=== PATIENT | male | born 1975 | race Caucasian/White ===

== ENCOUNTER 2018-09-21 17:48 | Observation (INO) | payer OTHER, SELFPAY ==
[2018-09-21 18:15] VITALS: BP 138/73; PULSE 86; RESP 11; O2SAT 100
--- NOTE | 2018-09-21 18:20 | DI.RAD.S_ITS ---
PROCEDURE: XR CHEST 1V INDICATIONS: chest pain TECHNIQUE: One view of the chest was acquired. COMPARISON: None. FINDINGS: Surgical changes and devices: None. Lungs and pleura: Lungs are clear. No pleural effusions or pneumothorax. There is prominence of the pulmonary vasculature bilaterally. Mediastinum: Mediastinal contours appear normal. Heart size is normal. Bones and chest wall: No suspicious bony lesions. Overlying soft tissues appear unremarkable. IMPRESSION: No acute cardiopulmonary disease. Dictated by: Mahin Trevino M.D. on 09/21/2018 at 19:15 Approved by: Mahin Trevino M.D. on 09/21/2018 at 19:16
[2018-09-21 18:30] VITALS: PULSE 86; RESP 11; TEMP 37.2; O2SAT 100; BMI 23.0
--- NOTE | 2018-09-21 18:31 | ED.CHESTPAIN ---
HPI - Chest Pain General Chief Complaint: Chest Pain Stated Complaint: CHEST PAIN Time Seen by Provider: 09/21/18 18:16 Source: patient Mode of arrival: ambulatory Limitations: no limitations History of Present Illness HPI narrative: Patient is a 43-year-old male who presents with chest pain. He said he had an episode 5 days ago during a very high stress event. He thought nothing of it. Today however at 8:30 a.m. this morning he started having chest discomfort lasting for about 10 min at a time. Not exacerbated with exertion or position. During these episodes he got extremely diaphoretic. He denies any shortness of breath or nausea. He also had some burning sensation in he cup that lasted 7 hr. He does have some mild discomfort now. He has no known coronary artery disease. MD complaint: chest pain Duration: intermittent Pain location: substernal Severity: moderate Pain radiation: none Relieving factors: nothing Exacerbating factors: nothing Related Data Allergies Allergy/AdvReac Type Severity Reaction Status Date / Time No Known Drug Allergies Allergy Verified 09/21/18 18:30 Review of Systems Review of Systems GENERAL: Denies chills, fatigue, malaise, fever, sweats, travel HEENT: Denies sinus pain, ear pain, sore throat, difficulty swallowing, neck pain RESPIRATORY: Denies dyspnea, cough, wheezing, hemoptysis, sputum. CARDIOVASCULAR: See HPI GASTROINTESTINAL: Denies nausea, vomiting, abdominal pain, diarrhea, constipation, melena. : Denies dysuria, frequency, incontinence, hematuria, urinary retention, flank pain. MUSCULOSKELETAL: Denies weakness, joint pain, or bony pain SKIN: No rash, no erythema, no pruritus NEUROLOGIC: Denies weakness, dizziness, headache, numbness, change in speech, confusion PSYCHIATRIC: No concerning psychosocial issues. 12 point review of systems is negative except for those stated above and HPI PFSH Medical History Hypertension (Acute) Migraine headache (Acute) Social History household members: spouse Smoking Status: Never smoker alcohol intake: never Social History household members: spouse Smoking Status: Never smoker alcohol intake: never Exam Initial Vital Signs Initial Vital Signs: Vital Signs Pulse Rate 86 09/21/18 18:15 Respiratory Rate 11 L 09/21/18 18:15 Blood Pressure 138/73 09/21/18 18:15 Pulse Oximetry 100 09/21/18 18:15 GENERAL: Well-appearing, well-nourished and in no acute distress. HEENT: Head atraumatic,EOMI, pupils reactive, CARDIOVASCULAR: Regular rate and rhythm without murmurs, rubs or gallops. RESPIRATORY: Breath sounds equal bilaterally, no wheezes rales or rhonchi. ABDOMEN: Soft, nontender. Normoactive bowel sounds all 4 quadrants. No guarding or rebound. EXTREMITIES: Normal range of motion, no clubbing or edema. Neurovascularly intact NEUROLOGICAL: Alert and oriented x4.Normal gait and speech. SKIN: Warm, dry, no laceration, no petechiae, no rashes or lesions. Scores HEART Score Heart Score history: Moderately Suspicious Heart Score EKG: Normal Heart Score Age: 45-64 years old Heart Score risk factors: No known risk factors Heart Score troponin: < or = to normal limit Heart Score Total: 2 Course Orders Ordered: ED Orders 09/21/18 21:48 Consult to Discharge Planning Routine 09/21/18 23:58 Respiratory Panel (Film Array) Routine 09/22/18 Basic Metabolic Panel Routine Complete Blood Count AUTO DIFF Routine 09/22/18 05:00 Troponin & CK Cardiac Panel Urgent Acetaminophen (Tylenol) 650 mg PO Q6HR PRN PRN Reason: As Needed for Fever/Mild Pain Ibuprofen (Advil) 600 mg PO Q6HR PRN PRN Reason: As Needed for Fever/Mild Pain Last Admin: 09/22/18 00:11 Dose: 600 mg Magnesium Hydroxide (Milk Of Magnesia) 30 ml PO DAILY PRN PRN Reason: Constipation Morphine Sulfate (Morphine) 2 mg IV Q4HR PRN PRN Reason: Pain, Moderate (4-6) Naloxone HCl (Narcan) 0.2 mg IV Q2MIN PRN PRN Reason: Opiate Reversal Nitroglycerin (Nitrostat) 0.4 mg SL [id number] PRN PRN Reason: Chest Pain Ondansetron HCl (Zofran) 4 mg IV Q8HR PRN PRN Reason: Nausea And Vomiting Oxycodone HCl (Oxycodone) 10 mg PO Q4HR PRN PRN Reason: Pain, Severe (7-10) Oxycodone HCl (Oxycodone) 5 mg PO Q4HR PRN PRN Reason: Pain, Moderate (4-6) Pantoprazole Sodium (Protonix) 20 mg PO 0600 [facility] Discontinued Medications Aspirin (Aspirin Chew) 324 mg PO NOW ONE Stop: 09/21/18 18:21 Last Admin: 09/21/18 18:46 Dose: 324 mg Al Hydrox/Mg Hydrox/Simethicone 20 ml/ Lidocaine HCl 15 ml 0 ml PO NOW ONE Stop: 09/21/18 22:25 Last Admin: 09/21/18 22:57 Dose: 35 ml Ketorolac Tromethamine (Toradol) 30 mg IV NOW ONE Stop: 09/21/18 20:00 Last Admin: 09/21/18 20:13 Dose: 30 mg Pantoprazole Sodium (Protonix) 40 mg IV NOW ONE Stop: 09/21/18 18:40 Last Admin: 09/21/18 18:48 Dose: 40 mg Vital Signs - 8 hr 09/21/18 21:12 09/21/18 22:25 09/22/18 00:17 Temperature 98.9 F 98.8 F Pulse Rate 79 77 74 Respiratory Rate 16 20 16 Blood Pressure 126/76 119/64 Blood Pressure [Left Arm] 128/77 Pulse Oximetry 98 98 98 MDM - Chest Pain Lab Data Attestation: I reviewed the patient's lab results. Result diagrams: 09/21/18 18:20 09/21/18 18:20 Lab Results 09/21/18 09/21/18 09/21/18 Range/Units 18:20 18:20 18:20 WBC 5.4 (4.5-11.0) X10^3/uL RBC 4.58 (4.5-5.9) X10^6/uL Hgb 13.9 (13.5-17.5) g/dL Hct 41.0 (41-53) % MCV 89.6 (80-100) fL MCH 30.2 (26-34) PG MCHC 33.8 (30-36) % RDW 13.2 (11.6-14.8) % Plt Count 194 (150-400) X10^3/uL Neut % (Auto) 72.8 (50-75) % Lymph % (Auto) 16.2 L (25-40) % [place] % (Auto) 8.3 (3-14) % Eos % (Auto) 1.9 L (2-4) % Baso % (Auto) 0.8 (0-2) % Neut # (Auto) 4000 (8178-9358) /uL Lymph # (Auto) 900 L (6904-0773) /uL [place] # (Auto) 500 (0-900) /uL Eos # (Auto) 100 (0-450) /uL Baso # (Auto) 0 (0-100) /uL PT 11.8 (10.1-12.7) SECONDS INR 1.0 (0.9-1.3) APTT 42 H (26.4-36.2) SECONDS Sodium 136 L (137-145) mmol/L Potassium 3.6 (3.4-5.1) mmol/L Chloride 98 (98-107) mmol/L Carbon Dioxide 25 (22-32) mmol/L BUN 11 (9-20) mg/dL Creatinine 0.70 (0.66-1.25) mg/dL Estimated GFR > 60.0 (>60) mL/min BUN/Creatinine Ratio 15.7 (6-22) Glucose 107 H (70-100) mg/dL Calcium 9.4 (8.4-10.2) mg/dL Total Bilirubin 0.6 (0.2-1.3) mg/dL AST 23 (17-59) IU/L ALT 29 (21-72) IU/L Alkaline Phosphatase 47 (38-126) U/L Total Creatine Kinase 73 (55-170) U/L CK-MB (CK-2) TNP CK-MB (CK-2) Rel Index TNP Troponin I < 0.012 (0.01-0.034) ng/mL B-Natriuretic Peptide < 100 (<100) Total Protein 7.9 (6.3-8.2) g/dL Albumin 5.0 (3.5-5.0) g/dL Globulin 2.9 (1.7-4.1) g/dL Albumin/Globulin Ratio 1.7 (1.0-2.8) Lipase 77 (23-300) U/L Chlamy pneumoniae PCR (Not Detect) Adenovirus (PCR) (Not Detect) B.parapertussis DNA PCR (Not Detect) Coronavirus OC43 (PCR) (Not Detect) Coronavirus HKU1 (PCR) (Not Detect) Coronavirus 229E (PCR) (Not Detect) Coronavirus NL63 (PCR) (Not Detect) Human Metapneumovir PCR (Not Detect) Influenza Type A (PCR) (Not Detect) Influenza Type B (PCR) (Not Detect) M. pneumoniae (PCR) (Not Detect) Parainfluenza 1 (PCR) (Not Detect) Parainfluenza 2 (PCR) (Not Detect) Parainfluenza 3 (PCR) (Not Detect) Parainfluenza 4 (PCR) (Not Detect) RSV (PCR) (Not Detect) Entero/Rhino (PCR) (Not Detect) 09/21/18 Range/Units 23:58 WBC (4.5-11.0) X10^3/uL RBC (4.5-5.9) X10^6/uL Hgb (13.5-17.5) g/dL Hct (41-53) % MCV (80-100) fL MCH (26-34) PG MCHC (30-36) % RDW (11.6-14.8) % Plt Count (150-400) X10^3/uL Neut % (Auto) (50-75) % Lymph % (Auto) (25-40) % [place] % (Auto) (3-14) % Eos % (Auto) (2-4) % Baso % (Auto) (0-2) % Neut # (Auto) (2297-9426) /uL Lymph # (Auto) (1792-9763) /uL [place] # (Auto) (0-900) /uL Eos # (Auto) (0-450) /uL Baso # (Auto) (0-100) /uL PT (10.1-12.7) SECONDS INR (0.9-1.3) APTT (26.4-36.2) SECONDS Sodium (137-145) mmol/L Potassium (3.4-5.1) mmol/L Chloride (98-107) mmol/L Carbon Dioxide (22-32) mmol/L BUN (9-20) mg/dL Creatinine (0.66-1.25) mg/dL Estimated GFR (>60) mL/min BUN/Creatinine Ratio (6-22) Glucose (70-100) mg/dL Calcium (8.4-10.2) mg/dL Total Bilirubin (0.2-1.3) mg/dL AST (17-59) IU/L ALT (21-72) IU/L Alkaline Phosphatase (38-126) U/L Total Creatine Kinase (55-170) U/L CK-MB (CK-2) CK-MB (CK-2) Rel Index Troponin I (0.01-0.034) ng/mL B-Natriuretic Peptide (<100) Total Protein (6.3-8.2) g/dL Albumin (3.5-5.0) g/dL Globulin (1.7-4.1) g/dL Albumin/Globulin Ratio (1.0-2.8) Lipase (23-300) U/L Chlamy pneumoniae PCR Not detected (Not Detect) Adenovirus (PCR) Not detected (Not Detect) B.parapertussis DNA PCR Not detected (Not Detect) Coronavirus OC43 (PCR) Not detected (Not Detect) Coronavirus HKU1 (PCR) Not detected (Not Detect) Coronavirus 229E (PCR) Not detected (Not Detect) Coronavirus NL63 (PCR) Not detected (Not Detect) Human Metapneumovir PCR Not detected (Not Detect) Influenza Type A (PCR) Not detected (Not Detect) Influenza Type B (PCR) Not detected (Not Detect) M. pneumoniae (PCR) Not detected (Not Detect) Parainfluenza 1 (PCR) Not detected (Not Detect) Parainfluenza 2 (PCR) Not detected (Not Detect) Parainfluenza 3 (PCR) Not detected (Not Detect) Parainfluenza 4 (PCR) Not detected (Not Detect) RSV (PCR) Not detected (Not Detect) Entero/Rhino (PCR) Not detected (Not Detect) Imaging Data Chest x-ray: Radiologist's impression: PROCEDURE: XR CHEST 1V INDICATIONS: chest pain TECHNIQUE: One view of the chest was acquired. COMPARISON: None. FINDINGS: Surgical changes and devices: None. Lungs and pleura: Lungs are clear. No pleural effusions or pneumothorax. There is prominence of the pulmonary vasculature bilaterally. Mediastinum: Mediastinal contours appear normal. Heart size is normal. Bones and chest wall: No suspicious bony lesions. Overlying soft tissues appear unremarkable. IMPRESSION: No acute cardiopulmonary disease. Dictated by: Mahin Trevino M.D. on 09/21/2018 at 19:15 ECG Data Attestation: I personally reviewed and interpreted this ECG as follows: Prior ECG tracings: not available for review Interpretation: EKG 1. Normal sinus rhythm rate 84 year interval [address] changes no T-wave inversions no priors to compare His EKG 2. Normal sinus rhythm rate 77 unchanged from prior no is ST changes T-wave inversions or signs of ischemia MDM Narrative Medical decision making narrative: Patient is low risk for coronary artery disease however he has had multiple episodes today with chest discomfort and diaphoresis. His lasting for about 10-15 minutes at a time. He says that he has had episodes in the ED however is every time I have evaluated him he is chest pain-free at that time. He has already received aspirin he overall appears slightly pale. Troponin EKGs are negative. [facility] hospitalist accepts patient for chest pain observation. Discharge Plan Departure Patient Disposition: Admitted as Observation Clinical Impression: Chest pain Qualifiers: Chest pain type: unspecified Qualified Code(s): R07.9 - Chest pain, unspecified Discharge Date/Time: 09/21/18 21:30 Interventions: ED Discharge Assessment Last Done: 09/21/18 21:30 Admit Date/Time: 09/21/18 20:37 Admit Provider: Calin Blanco
[2018-09-21 18:32] LABS: Add Manual Diff / Slide Review NO; Basophils Absolute Auto 0 /uL (0-100); Basophils Percent Auto 0.8 % (0-2); Eosinophils Absolute Auto 100 /uL (0-450); Eosinophils Percent Auto 1.9 % (2-4); Hemoglobin 13.9 g/dL (13.5-17.5); Lymphocytes Absolute Auto 900 /uL (1100-4500); Lymphocytes Percent Auto 16.2 % (25-40); Mean Corpuscular HGB Conc 33.8 % (30-36); Mean Corpuscular Hemoglobin 30.2 PG (26-34); Mean Corpuscular Volume 89.6 fL (80-100); Monocytes Absolute Auto 500 /uL (0-900); Monocytes Percent Auto 8.3 % (3-14); Neutrophils Absolute Auto 4000 /uL (1500-7000); Neutrophils Percent Auto 72.8 % (50-75); Platelet Count 194 X10^3/uL (150-400); Red Blood Cell Count 4.58 X10^6/uL (4.5-5.9); Red Cell Distribution Width 13.2 % (11.6-14.8); White Blood Cell Count 5.4 X10^3/uL (4.5-11.0)
[2018-09-21 18:42] LABS: Prothrombin Time 11.8 SECONDS (10.1-12.7)
[2018-09-21 18:44] LABS: Alanine Aminotransferase 29 IU/L (21-72); Albumin Globulin Ratio 1.7 (1.0-2.8); Alkaline Phosphatase 47 U/L (38-126); Aspartate Aminotransferase 23 IU/L (17-59); BUN Creatinine Ratio 15.7 (6-22); Bilirubin Total 0.6 mg/dL (0.2-1.3); Blood Urea Nitrogen 11 mg/dL (9-20); Calcium 9.4 mg/dL (8.4-10.2); Carbon Dioxide 25 mmol/L (22-32); Chloride 98 mmol/L (98-107); Creatine Kinase 73 U/L (55-170); Estimated Glomerular Filt Rate > 60.0 mL/min (>60); Globulin 2.9 g/dL (1.7-4.1); Glucose 107 mg/dL (70-100); HEMOLYSIS < 15 (0-50); Lipase 77 U/L (23-300); Potassium 3.6 mmol/L (3.4-5.1); Sodium 136 mmol/L (137-145); Total Protein 7.9 g/dL (6.3-8.2)
[2018-09-21 18:45] LABS: PTT Partial Thromboplastin Tim 42 SECONDS (26.4-36.2)
[2018-09-21] MEDS: ASPIRIN 81 MG TAB 324 MG PO (18:46)
[2018-09-21] MEDS: PANTOPRAZOLE 40 MG VIAL IV (18:48)
[2018-09-21 18:56] LABS: Troponin I < 0.012 ng/mL (0.01-0.034)
[2018-09-21 19:30] VITALS: BP 132/74; PULSE 12; RESP 12; O2SAT 99
[2018-09-21 19:38] LABS: B Type Natriuretic Peptide < 100 (<100)
[2018-09-21] MEDS: KETOROLAC 60 MG/2 ML VIAL 30 MG IV (20:13)
[2018-09-21 20:30] VITALS: BP 133/73; RESP 18; O2SAT 99
[2018-09-21 21:12] VITALS: BP 128/77; PULSE 79; RESP 16; O2SAT 98
[2018-09-21 22:25] VITALS: BP 126/76; PULSE 77; RESP 20; TEMP 37.2; O2SAT 98
[2018-09-21 22:27] VITALS: BMI 23.8
[2018-09-21] MEDS: MAG HYDROX/ALUMINUM/SIMETH SUS 20 ML, LIDOCAINE VISCOUS 2% 15 ML PO (22:57)
--- NOTE | 2018-09-21 23:02 | PC.NURSE ---
Pt came into ER for checst pain. EKG normal, chest xray neg, enzymes neg. Pt came to the floor at 2200. VSS, patient just says that he has pain in head and neck level 6. Francis DIAZ consulted with patient and feels like it is GI related. Pt is on tele, and GI cocktail. Stool sample ordered to rule out H-pylori.
[2018-09-22] MEDS: IBUPROFEN 600 MG TABLET PO (00:11)
[2018-09-22 00:17] VITALS: BP 119/64; PULSE 74; RESP 16; TEMP 37.1; O2SAT 98
--- NOTE | 2018-09-22 00:32 | PC.NURSE ---
Addendum entered by Tasha Ochoa R.N. 09/22/18 05:40: Patient sleeping soundly most of shift after Ibprofen per eMaR. No voiced complaint, VSS. Patient's spouse at bedside this shift. monitor tech in place. Call light in reach. Original Note: NOC SHIFT/PAIN CONTROL Patient resting comfortably in bed at time of assessment. Patient reports that episgastric pain much better after GI cocktail. Patient's reports that he was able to get comfortable and sleep for a few minutes. Patient reporting headache and medicated per eMar. VSS, no acute distress, will continue to monitor. gambling monitor in place, call light in reach.
[2018-09-22 01:31] LABS: Adenovirus Not Detected (Not Detect); Bordetella pertussis Not Detected (Not Detect); Chlamydophila pneumoniae Not Detected (Not Detect); Coronavirus 229E Not Detected (Not Detect); Coronavirus HKU1 Not Detected (Not Detect); Coronavirus NL 63 Not Detected (Not Detect); Coronavirus OC43 Not Detected (Not Detect); Human Metapneumovirus Not Detected (Not Detect); Human Rhinovirus/Enterovirus Not Detected (Not Detect); Influenza A Not Detected (Not Detect); Influenza B Not Detected (Not Detect); Mycoplasma pneumoniae Not Detected (Not Detect); Parainfluenza Virus 1 Not Detected (Not Detect); Parainfluenza Virus 2 Not Detected (Not Detect); Parainfluenza Virus 3 Not Detected (Not Detect); Parainfluenza Virus 4 Not Detected (Not Detect); Respiratory Syncytial Virus Not Detected (Not Detect)
--- NOTE | 2018-09-22 02:55 | P.HP_ITS ---
History of Present Illness Date Patient Seen: 09/21/18 Time Patient Seen: 23:00 Chief complaint: CHEST PAIN Narrative: Gilles Wallis is a 43-year-old male patient with a history of hypertension who presents to the hospital with complaints of chest pain with associated profuse diaphoresis. The patient states that he had an episode of the same which occurred 5 days ago that was self terminating after brief. and did not recur at that time until today at 8:30 a.m. when the patient experienced chest pain that he describes as up and down the midsternum. He describes the pain as burning in character and lasted approximately 10 min and was associated with a profuse sweat. Difficult comfort dissipated without intervention and is not provoked by any specific activity. The pain would recur off and on during the day. The patient describes being under a great deal stress with a high [employer] project. Patient also complains of hiccups that at times be so frequent that he feels that he would have a difficult time breathing, these have since resolved. The patient reports that during these events there was no radiation of the pain he denies back pain palpitations, shortness of breath and had no nausea or vomiting. He has no family history of cardiac disease. Denies acid taste in the mouth. His chief complaint at present is a left-sided headache that started behind left eye with a previous history of migraines his last headache being 5 years ago. He has associated photophobia and phonophobia. The patient does describe recent feeling of illness with fevers and chills for 2 w eeks. He denies dizziness nasal congestion or sore throat. He has had no shortness of breath or cough and denies nausea vomiting, diarrhea or constipation. He reports no difficulty with urinating and has nocturia once nightly. He has had no muscle or joint pains. Patient arrived in the ER at 6:15 p.m.. At that time he had a temperature of 99.0?, heart rate of 86, blood pressure 138/73, respirations of 11 with 100% oxygen saturation on room air. In the ER an x-ray was taken which showed no acute cardiopulmonary disease. His 12 lead EKG showed revealed a sinus rhythm with a ventricular rate of 84 with sinus arrhythmia without ectopy or block. He had no ST or T-wave changes or indication of prior infarct. His P are interval was 161 milliseconds QRS 106 milliseconds and QTC of 449 milliseconds. He had 1 troponin done in the ER which was negative at less than 0.012. His CBC and CMP are completely normal. In the ER he did receive aspirin, Protonix and Toradol for his headache. The ER physicians requested the patient be admitted for chest pain. Patient History Medical History Hypertension (Acute) Migraine headache (Acute) Social History household members: spouse Smoking Status: Never smoker alcohol intake: never Family & Social History Social History: household members spouse Prior Living Arrangements House Safety & Behavioral: Feels Safe in Current Yes Environment Been Physically Hurt or No Threatened By a Person Suicidal Ideation Description None Suicide Plan Description No Plan Tobacco & Substance use: Smoking Status Never smoker alcohol intake never Substance Use Type does not use Comment: The patient lives in a single family home with his . He he has no children and he is somewhat vague in description of his family medical history either not knowing or describing history in general terms however he does state that he has no knowledge of cardiovascular problems and any direct relatives. He otherwise describes his family medical history as unremarkable. Smoking: Patient states he has never smoked Alcohol: The patient reports not consuming alcohol Substance use: Patient denies recreation pharmaceuticals, herbal products or cannabis use. Advanced directives: The patient is wishes to be a full code and designates his Delmis to be his surrogate decision maker. Meds Allergies Allergy/AdvReac Type Severity Reaction Status Date / Time No Known Drug Allergies Allergy Verified 09/21/18 18:30 Review of Systems Review of Systems All systems reviewed & are unremarkable except as noted in HPI and below Exam Vital Signs (past 8 hours): - 09/21/18 19:30 09/21/18 20:30 09/21/18 21:12 Temperature Pulse Rate 12 L 79 Respiratory Rate 12 18 16 Blood Pressure Blood Pressure [Left Arm] 132/74 133/73 128/77 Pulse Oximetry 99 99 98 09/21/18 22:25 09/22/18 00:17 Temperature 98.9 F 98.8 F Pulse Rate 77 74 Respiratory Rate 20 16 Blood Pressure 126/76 119/64 Blood Pressure [Left Arm] Pulse Oximetry 98 98 Oxygen Delivery Method Room Air Narrative Exam Narrative: GENERAL APPEARANCE: well developed, well nourished, in no acute distress. HEAD: Normocephalic, atraumatic, no scalp lesions. EYES: pupils equal, round, reactive to light and accommodation, sclera non- icteric, extraocular movement intact without nystagmus. EARS: normal external structures, no ear pain NOSE: sinuses non tender to percussion, no rhinorrhea ORAL CAVITY: mucosa moist without lesions or exudate, palate normal, tongue in midline. THROAT: normal, no erythema, tonsils not swollen, no exudate, pharynx normal, uvula midline. NECK/THYROID: neck supple, no jugular venous distention, no carotid bruit, no thyromegaly, trachea midline. LYMPH NODES: no cervical or supraclavicular lymphadenopathy. SKIN: warm and dry, no suspicious lesions, no rashes, good turgor. HEART: regular rate and rhythm, S1-S2 without murmur, rubs, gallops, brisk capillary refill, no edema LUNGS: clear to auscultation bilaterally, no coarseness crackles or wheezing CHEST: Symmetrical movement, no accessory muscle use, no pain to AP and lateral compression. ABDOMEN: Soft, no distention, no epigastric or abdominal tenderness on palpation, no guarding or peritoneal signs, no organomegaly, no flank or suprapubic tenderness BACK: Normal curvature, nontender to palpation, no CVA tenderness on percussion EXTREMITIES: moves all extremities, strength is 5/5 and symmetrical, well perfused. NEUROLOGIC: AAO x4, no focal neurologic deficits, motor strength normal upper and lower extremities, sensory exam intact to light touch, cranial nerves II-XII grossly intact, hearing grossly normal to speech. PSYCH: alert, cognitive function intact, good eye contact, stable mood with congruent affect Objective Labs Result Diagrams: 09/21/18 18:20 09/21/18 18:20 Labs: Laboratory Results - last 24 hr 09/21/18 09/21/18 09/21/18 18:20 18:20 18:20 WBC 5.4 RBC 4.58 Hgb 13.9 Hct 41.0 MCV 89.6 MCH 30.2 MCHC 33.8 RDW 13.2 Plt Count 194 Neut % (Auto) 72.8 Lymph % (Auto) 16.2 L [place] % (Auto) 8.3 Eos % (Auto) 1.9 L Baso % (Auto) 0.8 Neut # (Auto) 4000 Lymph # (Auto) 900 L [place] # (Auto) 500 Eos # (Auto) 100 Baso # (Auto) 0 PT 11.8 INR 1.0 APTT 42 H Sodium 136 L Potassium 3.6 Chloride 98 Carbon Dioxide 25 BUN 11 Creatinine 0.70 Estimated GFR > 60.0 BUN/Creatinine Ratio 15.7 Glucose 107 H Calcium 9.4 Total Bilirubin 0.6 AST 23 ALT 29 Alkaline Phosphatase 47 Total Creatine Kinase 73 CK-MB (CK-2) TNP CK-MB (CK-2) Rel Index TNP Troponin I < 0.012 B-Natriuretic Peptide < 100 Total Protein 7.9 Albumin 5.0 Globulin 2.9 Albumin/Globulin Ratio 1.7 Lipase 77 Chlamy pneumoniae PCR Adenovirus (PCR) B.parapertussis DNA PCR Coronavirus OC43 (PCR) Coronavirus HKU1 (PCR) Coronavirus 229E (PCR) Coronavirus NL63 (PCR) Human Metapneumovir PCR Influenza Type A (PCR) Influenza Type B (PCR) M. pneumoniae (PCR) Parainfluenza 1 (PCR) Parainfluenza 2 (PCR) Parainfluenza 3 (PCR) Parainfluenza 4 (PCR) RSV (PCR) Entero/Rhino (PCR) 09/21/18 23:58 WBC RBC Hgb Hct MCV MCH MCHC RDW Plt Count Neut % (Auto) Lymph % (Auto) [place] % (Auto) Eos % (Auto) Baso % (Auto) Neut # (Auto) Lymph # (Auto) [place] # (Auto) Eos # (Auto) Baso # (Auto) PT INR APTT Sodium Potassium Chloride Carbon Dioxide BUN Creatinine Estimated GFR BUN/Creatinine Ratio Glucose Calcium Total Bilirubin AST ALT Alkaline Phosphatase Total Creatine Kinase CK-MB (CK-2) CK-MB (CK-2) Rel Index Troponin I B-Natriuretic Peptide Total Protein Albumin Globulin Albumin/Globulin Ratio Lipase Chlamy pneumoniae PCR Not detected Adenovirus (PCR) Not detected B.parapertussis DNA PCR Not detected Coronavirus OC43 (PCR) Not detected Coronavirus HKU1 (PCR) Not detected Coronavirus 229E (PCR) Not detected Coronavirus NL63 (PCR) Not detected Human Metapneumovir PCR Not detected Influenza Type A (PCR) Not detected Influenza Type B (PCR) Not detected M. pneumoniae (PCR) Not detected Parainfluenza 1 (PCR) Not detected Parainfluenza 2 (PCR) Not detected Parainfluenza 3 (PCR) Not detected Parainfluenza 4 (PCR) Not detected RSV (PCR) Not detected Entero/Rhino (PCR) Not detected Assessment & Plan Assessment & Plan narrative: 1. Chest pain, substernal nonradiating, acute -patient is evaluated following arrival on the floor and is lying in bed boarding some residual chest discomfort that is burning in character nonradiating -patient has been under great deal stress -the patient is given a GI cocktail with marked improvement symptoms -the patient is on telemetry, will recheck troponin in the morning -chest pain is believed to be gastric mediated reflux symptoms 2. Left migraine headache, acute -patient has had only 2 migraine headaches previously last being 5 years ago also left-sided -patient received Toradol in the emergency department that improved but not resolved his headache pain and is now escalating again -due to presumed gastric etiology of chest pain and reflux will avoid nonsteroidal anti-inflammatories. Oxycodone is ordered 1-2 tablets every 4 hr as needed. -migraine headache also improved following GI cocktail and improvement in pain 3. Hiccups, acute, now resolved -believed to be related to gastric irritation now resolved 4. Essential hypertension, chronic -patient is currently taking atenolol 50 mg daily -hypertensive at 138/73 in the ER down to 128/74 on the floor at the time of exam The patient is admitted to the hospital due to severity symptoms and risk complications. Patient is admitted as an observation with expected length of stay be less than 2 midnights. Time Spent With Patient Time with patient: 25 - 35 minutes Scores GCS [place] coma scale eye opening: Spontaneous Jimmy coma scale verbal response: Orientated Jimmy coma scale motor response: Obey commands [place] coma scale total score: 15 Quality VTE Deep Vein Thrombosis/Pulmonary Embolism Present on Admission: No
[2018-09-22 04:00] VITALS: BP 118/72; PULSE 70; RESP 16; TEMP 36.7; O2SAT 99
[2018-09-22] MEDS: PANTOPRAZOLE 20 MG TABLET PO (05:56)
[2018-09-22] MEDS: ACETAMINOPHEN 325 MG TABLET 650 MG PO (05:57)
[2018-09-22 06:24] LABS: Add Manual Diff / Slide Review NO; Basophils Absolute Auto 0 /uL (0-100); Basophils Percent Auto 0.9 % (0-2); Eosinophils Absolute Auto 200 /uL (0-450); Eosinophils Percent Auto 3.1 % (2-4); Hemoglobin 13.8 g/dL (13.5-17.5); Lymphocytes Absolute Auto 1400 /uL (1100-4500); Lymphocytes Percent Auto 29.5 % (25-40); Mean Corpuscular HGB Conc 34.5 % (30-36); Mean Corpuscular Hemoglobin 30.5 PG (26-34); Mean Corpuscular Volume 88.4 fL (80-100); Monocytes Absolute Auto 600 /uL (0-900); Monocytes Percent Auto 12.5 % (3-14); Neutrophils Absolute Auto 2700 /uL (1500-7000); Platelet Count 189 X10^3/uL (150-400); Red Blood Cell Count 4.52 X10^6/uL (4.5-5.9); Red Cell Distribution Width 13.1 % (11.6-14.8); White Blood Cell Count 4.9 X10^3/uL (4.5-11.0)
--- NOTE | 2018-09-22 06:28 | PM.PN.1 ---
Subjective Date Patient Seen: 09/22/18 Interval history: Gilles Wallis is a 43-year-old male with a past medical history significant for hypertension who presented for abrupt onset burning substernal chest pain with associated profuse diaphoresis. The patient is resting in bed comfortably and in no acute distress. He or she denies headache, ear pain, rhinitis, sore throat, cough, shortness of breath, chest pain, abdominal pain, nausea, vomiting, fever, chills, dysuria, diarrhea or constipation. He or she is voiding and eliminating without difficulty. He or she is up ambulating without or with assistance. Exam Vital Signs (past 8 hours): - 09/22/18 00:17 Temperature 98.8 F Pulse Rate 74 Respiratory Rate 16 Blood Pressure 119/64 Pulse Oximetry 98 Oxygen Delivery Method Room Air Narrative Exam Narrative: General: No acute distress, well-developed, well-nourished, appropriately interactive HEENT: Normocephalic, atraumatic. External ears without defect. Pupils equal, round, and reactive to light and accommodation. Anicteric sclerae, moist conjunctivae, and no lid lag. Oropharynx free of erythema and cobble stoning with moist mucosa. Neck: Supple with full range of motion. No jugular venous distension. No bruits. No lymphadenopathy or thyromegaly. Cardiovascular: Regular rate and rhythm without murmurs, rubs, or gallops appreciated Pulmonary: Clear to auscultation bilaterally without crackles, wheezes, or rhonchi. Normal respiratory effort with no use of accessory muscles. Abdomen: Bowel tones present. Soft, nontender, nondistended. No hepatosplenomegaly or masses appreciated. Extremities: No clubbing, cyanosis, or edema. Skin: Normal temperature, turgor, and texture; no rash, ulcers, or subcutaneous nodules appreciated. Neurological: Cranial nerves grossly intact. Normal muscle strength, tone, and bulk. Reflexes, coordination, and sensory function within normal limits. No known gait impairment. Psychiatric: Normal mood and affect. Alert and oriented to person, place, and time. Objective Labs Result Diagrams: 09/22/18 05:55 09/22/18 05:55 Labs: Laboratory Results - last 24 hr 09/21/18 09/21/18 09/21/18 18:20 18:20 18:20 WBC 5.4 RBC 4.58 Hgb 13.9 Hct 41.0 MCV 89.6 MCH 30.2 MCHC 33.8 RDW 13.2 Plt Count 194 Neut % (Auto) 72.8 Lymph % (Auto) 16.2 L [place] % (Auto) 8.3 Eos % (Auto) 1.9 L Baso % (Auto) 0.8 Neut # (Auto) 4000 Lymph # (Auto) 900 L [place] # (Auto) 500 Eos # (Auto) 100 Baso # (Auto) 0 PT 11.8 INR 1.0 APTT 42 H Sodium 136 L Potassium 3.6 Chloride 98 Carbon Dioxide 25 BUN 11 Creatinine 0.70 Estimated GFR > 60.0 BUN/Creatinine Ratio 15.7 Glucose 107 H Calcium 9.4 Total Bilirubin 0.6 AST 23 ALT 29 Alkaline Phosphatase 47 Total Creatine Kinase 73 CK-MB (CK-2) TNP CK-MB (CK-2) Rel Index TNP Troponin I < 0.012 B-Natriuretic Peptide < 100 Total Protein 7.9 Albumin 5.0 Globulin 2.9 Albumin/Globulin Ratio 1.7 Lipase 77 Chlamy pneumoniae PCR Adenovirus (PCR) B.parapertussis DNA PCR Coronavirus OC43 (PCR) Coronavirus HKU1 (PCR) Coronavirus 229E (PCR) Coronavirus NL63 (PCR) Human Metapneumovir PCR Influenza Type A (PCR) Influenza Type B (PCR) M. pneumoniae (PCR) Parainfluenza 1 (PCR) Parainfluenza 2 (PCR) Parainfluenza 3 (PCR) Parainfluenza 4 (PCR) RSV (PCR) Entero/Rhino (PCR) 09/21/18 23:58 WBC RBC Hgb Hct MCV MCH MCHC RDW Plt Count Neut % (Auto) Lymph % (Auto) [place] % (Auto) Eos % (Auto) Baso % (Auto) Neut # (Auto) Lymph # (Auto) [place] # (Auto) Eos # (Auto) Baso # (Auto) PT INR APTT Sodium Potassium Chloride Carbon Dioxide BUN Creatinine Estimated GFR BUN/Creatinine Ratio Glucose Calcium Total Bilirubin AST ALT Alkaline Phosphatase Total Creatine Kinase CK-MB (CK-2) CK-MB (CK-2) Rel Index Troponin I B-Natriuretic Peptide Total Protein Albumin Globulin Albumin/Globulin Ratio Lipase Chlamy pneumoniae PCR Not detected Adenovirus (PCR) Not detected B.parapertussis DNA PCR Not detected Coronavirus OC43 (PCR) Not detected Coronavirus HKU1 (PCR) Not detected Coronavirus 229E (PCR) Not detected Coronavirus NL63 (PCR) Not detected Human Metapneumovir PCR Not detected Influenza Type A (PCR) Not detected Influenza Type B (PCR) Not detected M. pneumoniae (PCR) Not detected Parainfluenza 1 (PCR) Not detected Parainfluenza 2 (PCR) Not detected Parainfluenza 3 (PCR) Not detected Parainfluenza 4 (PCR) Not detected RSV (PCR) Not detected Entero/Rhino (PCR) Not detected Assessment & Plan Assessment & Plan narrative: Gilles Wallis is a 43-year-old male with a past medical history significant for hypertension who presented for abrupt onset burning substernal chest pain with associated profuse diaphoresis. 1. Acute atypical chest pain, present on admission. Resolved. -Patient presented with substernal burning chest pain, radiating up and down sternum, with associated diaphoresis. Patient reports great deal of stress due to work. -Negligible cardiac risk factors other than hypertension. -Received GI cocktail with marked improvement symptoms. Symptoms likely related to gastric reflux. -EKG did not demonstrate any acute ischemic changes. Initial troponin negative < 0.012. Trend serial troponins x3. -Continue to monitor on telemetry. -Recommend outpatient stress test. 2. Acute left-sided migraine headache, present on admission. Resolved. -History of migraine headaches previously last being 5 years ago also left-sided -Received Toradol in ED and improved. Ordered -Due to presumed gastric etiology of chest pain and reflux will avoid nonsteroidal anti-inflammatories. Oxycodone is ordered 1-2 tablets every 4 hr as needed. -migraine headache also improved following GI cocktail and improvement in pain 3. Acute hiccups, present on admission. Resolved. -Secondary to diaphragmatic spasm from gastric irritation 4. Essential hypertension, chronic, present on admission. Stable. -Continue atenolol 50 mg daily. Well controlled. Quality VTE Deep Vein Thrombosis/Pulmonary Embolism Present on Admission: No
[2018-09-22 06:29] LABS: Creatine Kinase 52 U/L (55-170)
[2018-09-22 06:40] LABS: BUN Creatinine Ratio 12.5 (6-22); Blood Urea Nitrogen 10 mg/dL (9-20); Calcium 9.1 mg/dL (8.4-10.2); Carbon Dioxide 27 mmol/L (22-32); Chloride 101 mmol/L (98-107); Estimated Glomerular Filt Rate > 60.0 mL/min (>60); Glucose 99 mg/dL (70-100); HEMOLYSIS < 15 (0-50); Potassium 3.7 mmol/L (3.4-5.1); Sodium 138 mmol/L (137-145)
[2018-09-22 06:42] LABS: Troponin I < 0.012 ng/mL (0.01-0.034)
[2018-09-22 07:00] VITALS: O2SAT 100
[2018-09-22 08:05] VITALS: BP 129/85; PULSE 70; RESP 16; TEMP 36.7; O2SAT 100
[2018-09-22] MEDS: SUMAtriptan 25 MG TABLET 100 MG PO (08:31)
--- NOTE | 2018-09-22 10:23 | PM.DS.1 ---
History of Present Illness Date Patient Seen: 09/21/18 Chief complaint: CHEST PAIN Narrative: Written by Calin MURGUIA: Gilles Wallis is a 43-year-old male patient with a history of hypertension who presents to the hospital with complaints of chest pain with associated profuse diaphoresis. The patient states that he had an episode of the same which occurred 5 days ago that was self terminating after brief. and did not recur at that time until today at 8:30 a.m. when the patient experienced chest pain that he describes as up and down the midsternum. He describes the pain as burning in character and lasted approximately 10 min and was associated with a profuse sweat. Difficult comfort dissipated without intervention and is not provoked by any specific activity. The pain would recur off and on during the day. The patient describes being under a great deal stress with a high [employer] project. Patient also complains of hiccups that at times be so frequent that he feels that he would have a difficult time breathing, these have since resolved. The patient reports that during these events there was no radiation of the pain he denies back pain palpitations, shortness of breath and had no nausea or vomiting. He has no family history of cardiac disease. Denies acid taste in the mouth. His chief complaint at present is a left-sided headache that started behind left eye with a previous history of migraines his last headache being 5 years ago. He has associated photophobia and phonophobia. The patient does describe recent feeling of illness with fevers and chills for 2 weeks. He denies dizziness nasal congestion or sore throat. He has had no shortness of breath or cough and denies nausea vomiting, diarrhea or constipation. He reports no difficulty with urinating and has nocturia once nightly. He has had no muscle or joint pains. Patient arrived in the ER at 6:15 p.m.. At that time he had a temperature of 99.0?, heart rate of 86, blood pressure 138/73, respirations of 11 with 100% oxygen saturation on room air. In the ER an x-ray was taken which showed no acute cardiopulmonary disease. His 12 lead EKG showed revealed a sinus rhythm with a ventricular rate of 84 with sinus arrhythmia without ectopy or block. He had no ST or T-wave changes or indication of prior infarct. His P are interval was 161 milliseconds QRS 106 milliseconds and QTC of 449 milliseconds. He had 1 troponin done in the ER which was negative at less than 0.012. His CBC and CMP are completely normal. In the ER he did receive aspirin, Protonix and Toradol for his headache. The ER physicians requested the patient be admitted for chest pain. Discharge Providers Date of admission: 09/21/18 20:37 Discharge Date: 09/22/18 Consults: 09/21/18 21:48 Consult to Discharge Planning Routine Comment: Discharge provider: Sandhya Rene DO Summary Discharge Diagnosis: 1. Acute atypical chest pain, present on admission. Resolved. 2. Acute left-sided migraine headache, present on admission. Resolved. 3. Acute hiccups, present on admission. Resolved. 4. History of hypertension. Hospital Course: Gilles Wallis is a 43-year-old male with a past medical history significant for hypertension who presented for abrupt onset burning substernal chest pain with associated profuse diaphoresis. 1. Acute atypical chest pain, present on admission. Resolved. -Patient presented with substernal burning chest pain, radiating up and down sternum, with associated diaphoresis. Patient reports great deal of stress due to work. -Negligible cardiac risk factors other than high stress level and previous history of obesity and hypertension now resolved after 100 lbs weight loss. -Received GI cocktail with marked improvement symptoms. Symptoms likely related to gastric reflux. -EKG did not demonstrate any acute ischemic changes. Serial troponins negative < 0.012. -Continued to monitor on telemetry. No ectopy. -Patient is low risk for cardiovascular disease and recommended stress test outpatient if symptoms continue or needs peace of mind. Recommended famotidine or ranitidine as needed for acid reflux symptoms. 2. Acute left-sided migraine headache, present on admission. Resolved. -History of migraine headaches with his last 5 years ago also left-sided. -Received Toradol in ED and improved. -Due to presumed gastric etiology of chest pain avoided NSAIDs. Migraine headache resolved following GI cocktail. 3. Acute hiccups, present on admission. Resolved. -Secondary to diaphragmatic spasm from gastric irritation. 4. History of hypertension. -Patient reports he no longer has hypertension and is not on medication due to 100 lb weight loss. Exam Vital Signs (past 8 hours): - 09/22/18 04:00 09/22/18 07:00 09/22/18 08:05 Temperature 98.0 F 98.1 F Pulse Rate 70 70 Respiratory Rate 16 16 Blood Pressure 118/72 129/85 Pulse Oximetry 99 100 100 Oxygen Delivery Method Room Air Oxygen Flow Rate 0 Narrative Exam Narrative: General: Middle aged gentleman sitting in bedside chair and in no acute distress, well-developed, well-nourished, slightly irritable but appropriately interactive. HEENT: Normocephalic, atraumatic. External ears without defect. Pupils equal, round, and reactive to light. Anicteric sclerae, moist conjunctivae, and no lid lag. Oropharynx free of erythema and cobble stoning with moist mucosa. Neck: Supple with full range of motion. No jugular venous distension. No lymphadenopathy or thyromegaly. Cardiovascular: Regular rate and rhythm without murmurs, rubs, or gallops appreciated Pulmonary: Clear to auscultation bilaterally without crackles, wheezes, or rhonchi. Normal respiratory effort with no use of accessory muscles. Abdomen: Soft, bowel sounds present,nontender, nondistended. No hepatosplenomegaly or masses appreciated. Extremities: No clubbing, cyanosis, or edema. Skin: Normal temperature, turgor, and texture; no rash, ulcers, or subcutaneous nodules appreciated. Neurological: Cranial nerves grossly intact. Normal muscle strength, tone, and bulk. Reflexes, coordination, and sensory function within normal limits. No known gait impairment. Psychiatric: Irritable mood and flat affect. Alert and oriented to person, place, and time. Objective Labs Result Diagrams: 09/22/18 05:55 09/22/18 05:55 Labs: Laboratory Results - last 24 hr 09/21/18 09/21/18 09/21/18 18:20 18:20 18:20 WBC 5.4 RBC 4.58 Hgb 13.9 Hct 41.0 MCV 89.6 MCH 30.2 MCHC 33.8 RDW 13.2 Plt Count 194 Neut % (Auto) 72.8 Lymph % (Auto) 16.2 L [place] % (Auto) 8.3 Eos % (Auto) 1.9 L Baso % (Auto) 0.8 Neut # (Auto) 4000 Lymph # (Auto) 900 L [place] # (Auto) 500 Eos # (Auto) 100 Baso # (Auto) 0 PT 11.8 INR 1.0 APTT 42 H Sodium 136 L Potassium 3.6 Chloride 98 Carbon Dioxide 25 BUN 11 Creatinine 0.70 Estimated GFR > 60.0 BUN/Creatinine Ratio 15.7 Glucose 107 H Calcium 9.4 Total Bilirubin 0.6 AST 23 ALT 29 Alkaline Phosphatase 47 Total Creatine Kinase 73 CK-MB (CK-2) TNP CK-MB (CK-2) Rel Index TNP Troponin I < 0.012 B-Natriuretic Peptide < 100 Total Protein 7.9 Albumin 5.0 Globulin 2.9 Albumin/Globulin Ratio 1.7 Lipase 77 Chlamy pneumoniae PCR Adenovirus (PCR) B.parapertussis DNA PCR Coronavirus OC43 (PCR) Coronavirus HKU1 (PCR) Coronavirus 229E (PCR) Coronavirus NL63 (PCR) Human Metapneumovir PCR Influenza Type A (PCR) Influenza Type B (PCR) M. pneumoniae (PCR) Parainfluenza 1 (PCR) Parainfluenza 2 (PCR) Parainfluenza 3 (PCR) Parainfluenza 4 (PCR) RSV (PCR) Entero/Rhino (PCR) 09/21/18 09/22/18 09/22/18 23:58 05:55 05:55 WBC 4.9 RBC 4.52 Hgb 13.8 Hct 40.0 L MCV 88.4 MCH 30.5 MCHC 34.5 RDW 13.1 Plt Count 189 Neut % (Auto) 54.0 Lymph % (Auto) 29.5 [place] % (Auto) 12.5 Eos % (Auto) 3.1 Baso % (Auto) 0.9 Neut # (Auto) 2700 Lymph # (Auto) 1400 [place] # (Auto) 600 Eos # (Auto) 200 Baso # (Auto) 0 PT INR APTT Sodium Potassium Chloride Carbon Dioxide BUN Creatinine Estimated GFR BUN/Creatinine Ratio Glucose Calcium Total Bilirubin AST ALT Alkaline Phosphatase Total Creatine Kinase 52 L CK-MB (CK-2) TNP CK-MB (CK-2) Rel Index TNP Troponin I < 0.012 B-Natriuretic Peptide Total Protein Albumin Globulin Albumin/Globulin Ratio Lipase Chlamy pneumoniae PCR Not detected Adenovirus (PCR) Not detected B.parapertussis DNA PCR Not detected Coronavirus OC43 (PCR) Not detected Coronavirus HKU1 (PCR) Not detected Coronavirus 229E (PCR) Not detected Coronavirus NL63 (PCR) Not detected Human Metapneumovir PCR Not detected Influenza Type A (PCR) Not detected Influenza Type B (PCR) Not detected M. pneumoniae (PCR) Not detected Parainfluenza 1 (PCR) Not detected Parainfluenza 2 (PCR) Not detected Parainfluenza 3 (PCR) Not detected Parainfluenza 4 (PCR) Not detected RSV (PCR) Not detected Entero/Rhino (PCR) Not detected 09/22/18 05:55 WBC RBC Hgb Hct MCV MCH MCHC RDW Plt Count Neut % (Auto) Lymph % (Auto) [place] % (Auto) Eos % (Auto) Baso % (Auto) Neut # (Auto) Lymph # (Auto) [place] # (Auto) Eos # (Auto) Baso # (Auto) PT INR APTT Sodium 138 Potassium 3.7 Chloride 101 Carbon Dioxide 27 BUN 10 Creatinine 0.80 Estimated GFR > 60.0 BUN/Creatinine Ratio 12.5 Glucose 99 Calcium 9.1 Total Bilirubin AST ALT Alkaline Phosphatase Total Creatine Kinase CK-MB (CK-2) CK-MB (CK-2) Rel Index Troponin I B-Natriuretic Peptide Total Protein Albumin Globulin Albumin/Globulin Ratio Lipase Chlamy pneumoniae PCR Adenovirus (PCR) B.parapertussis DNA PCR Coronavirus OC43 (PCR) Coronavirus HKU1 (PCR) Coronavirus 229E (PCR) Coronavirus NL63 (PCR) Human Metapneumovir PCR Influenza Type A (PCR) Influenza Type B (PCR) M. pneumoniae (PCR) Parainfluenza 1 (PCR) Parainfluenza 2 (PCR) Parainfluenza 3 (PCR) Parainfluenza 4 (PCR) RSV (PCR) Entero/Rhino (PCR) Discharge Plan Discharge Plan Patient Disposition: Home Discharge comment: You are being discharged home. Your EKG and heart enzymes were normal and do not demonstrate signs of impending heart attack. Your burning chest pain and hiccups were likely secondary to acid reflux from high stress levels. you may take famotidine or ranitidine as instructed on bottle and as needed for return of symptoms and Tums in between doses. you may pursue a stress test in the future for peace of mind. You have very little cardiac risk factors other than stress and history of hypertension and obesity previously. Congratulations on losing weight. To manage your stress recommend counseling and relaxation techniques such as meditation, massage therapy, aroma therapy etc. Please follow-up with your PCP to discuss your hospitalization and further management of stress and referral to psychology for counseling (cognitive behavioral therapy). Discharge Med Rec/Prescriptions Prescriptions: No Action No Known Home Medications RF: 0 Provider Discharge Instructions Diet: Diet as Tolerated, Low-fat, Low-sodium and Low-cholesterol Activity: Activity as tolerated. Visit Report/Discharge Packet Instructions: Heartburn -- Overview, DI for Gastroesophageal Reflux Disease (GERD) Discharge Data Attending Provider: Calin Blanco Admit Date/Time: 09/21/18 20:37 Quality VTE Deep Vein Thrombosis/Pulmonary Embolism Present on Admission: No
--- NOTE | 2018-09-22 12:24 | CM.DANOTE ---
DCP: Case received, EMR reviewed and met with patient. Introduced self and role. DCP template completed with information currently available. Patient is a 43 year old male who admitted yesterday evening to the care of the hospitalist team. PCP: Dr. Napier. Payer: confirmed: [facility]. Patient came to hospital via family vehicle due to chest pains. Patient has history of Hypertension as well. He is currently employed, and according to hospitalist, has had significant stress at work. Met briefly with patient. Pleasant, anxious to go home. was also present at bedside. Patient is independent. He mentioned that his primary provider is Dr. Jose Napier, who now is in [place], but he still sees patient. P: Patient is to be discharged home today. He will be pursuing outpatient stress test. Lelo Major RN/Patient Services Specialist
== END 2018-09-22 10:50 | disposition home or self-care (01) ==
LOC: ED 20:23 → AC 20:38
PROVIDERS: Admitting Provider Nurse Practitioner Adult Health; Emergency Provider Emergency Medicine; Visit Provider Nurse Practitioner Adult Health
DX: R07.9 Chest pain, unspecified (principal); I10 Essential (primary) hypertension; G43.909 Migraine, unspecified, not intractable, without status migrainosus
CPT/HCPCS: 36415; 36591; 71045; 80048; 80053; 82550; 83690; 83880; 84484; 85025; 85610; 85730; 87633; 93005; 96374; 96375; 99283; 99285; G0378; C9113; J1885